=== PATIENT | male | born 1980 | race Caucasian/White ===

== ENCOUNTER 2018-12-22 16:16 | Emergency (ER) | payer OTHER ==
[~2018-12-22] VITALS: Ht 185.4 cm; Wt 74.4 kg
[~2018-12-22 16:16] MED LIST: BACTRIM DS TAB1 EACH PO; CEPHALEXIN500 MG PO; COLCHICINE0.6 M1 PO; FLOMAX0.4 MG PO; NAPROXEN500 MG PO; NORCO 5-325 TA1 EACH PO; PERCOCET 5-3251 EACH PO; RANITIDINE HCL300 M1 PO; SIMVASTATIN20 MG PO; ULORIC40 MG PO; ZIAC 2.5-6.25 MG1 EA PO
[2018-12-22] MEDS ORDERED: BUSPIRONE HCL5 MG (16:35)
[2018-12-22] MEDS ORDERED: ALLOPURINOL100 MG PO (16:35)
[2018-12-22] MEDS ORDERED: FLUOXETINE HCL40 MG PO (16:35)
== END 2018-12-22 18:45 | disposition home or self-care (01) ==
LOC: ED 16:16
DX: M79.671 Pain in right foot (principal)